=== PATIENT | female | born 2000 | race Caucasian/White ===

== ENCOUNTER 2020-05-20 08:11 | Emergency (ER) | payer OTHER, SELFPAY ==
--- NOTE | 2020-05-20 08:24 | ED.GENADULT ---
HPI - General Adult General Chief complaint: Ear Stated complaint: ear pain Time Seen by Provider: 05/20/20 08:34 Source: patient Mode of arrival: ambulatory Limitations: no limitations History of Present Illness HPI narrative: 20-year-old female patient presents to the [facility] with complaints of left ear pain x1 week. Denies any fevers, body aches or chills. Denies any runny nose, cough or sore throat. Denies any chest pain, shortness of breath, abdominal pain, nausea, vomiting or diarrhea. Patient denies or breast-feeding at this time. Patient states she really has not taken anything for her symptoms since they started. Denies any recent swimming. Related Data Home Medications Medication Instructions Recorded Confirmed drospirenone-ethinyl estradiol tablet 05/20/20 [Ld (28)] Allergies Allergy/AdvReac Type Severity Reaction Status Date / Time No Known Allergies Allergy Unverified 04/23/17 16:35 Review of Systems Review of Systems: Narrative: CONSTITUTIONAL: Denies fever, chills, or sweats. EYES: Denies visual changes, redness, or discharge. ENT: Denies rhinorrhea, congestion, sore throat, positive left otalgia. CARDIOVASCULAR: Denies chest pain, palpitations, or edema. RESPIRATORY: Denies cough or dyspnea. GASTROINTESTINAL: Denies abdominal pain, nausea, vomiting, or diarrhea. GENITOURINARY: Denies dysuria or hematuria. SKIN: Denies rash or itching. MUSCULOSKELETAL: Denies back pain, joint pain, or myalgia. NEUROLOGIC: Denies headache, numbness, or weakness. PSYCHIATRIC: Denies anxiety or depression. PMFSH Comments At the time of my signature I agree with nursing past medical history, surgical, social, and family history. There is no relevant family history pertinent to the presenting complaint. Exam Narrative: Exam Narrative: GENERAL: Well-appearing, well-nourished, and in no acute distress. HEAD: Normocephalic, atraumatic. EYES: PERRLA and EOMI. ENT: Nares clear, no rhinorrhea or epistaxis. Mucous membranes moist. Posterior pharynx with no erythema, tonsillar joint, exudates or lesions present. Bilateral TMs are clear with no erythema. No foreign bodies or erythema noted to the canal. The left ear does have a little bit of fluid noted behind the TM present. No obvious bulging noted. NECK: Supple. No lymphadenopathy CHEST: Clear to auscultation. No respiratory distress. HEART: Regular rate and rhythm. No murmur heard. Normal peripheral pulses. ABDOMEN: Soft, nontender, nondistended, normal active bowel sounds. EXTREMITIES: Normal range of motion. No edema. SKIN: Warm, dry, no rash. NEURO: No focal deficits. Alert and oriented x3. Course Vital Signs Vital signs: Vital Signs Temperature 37.2 C 05/20/20 08:27 Pulse Rate 79 05/20/20 08:27 Respiratory Rate 16 05/20/20 08:27 Blood Pressure 122/68 05/20/20 08:27 Pulse Oximetry 100 05/20/20 08:27 Temperature 37.2 C 05/20/20 08:27 Pulse Rate 79 05/20/20 08:27 Respiratory Rate 16 05/20/20 08:27 Blood Pressure 122/68 05/20/20 08:27 Pulse Oximetry 100 05/20/20 08:27 Vital signs reviewed. Medical Decision Making Differential Diagnosis Differential Diagnosis: Differential diagnosis: Otitis media, otitis externa, perforated TM, infection of the outer ear, foreign body or cerumen impaction, ruptured TM, acute mastoiditis, ligament otitis externa, dehydration, pneumonia, sepsis, dental or intraoral infection, TMJ dysfunction Discussed with patient we will go ahead and start her on some antibiotics that she has been having pain to the ear for the past week as well as noted that there is a little bit of fluid. Even though I do not see an obvious infection today this could accumulate into an infection in a couple of days. Patient also recommended to take some [id number] antihistamines to promote sinus drainage. Patient verbalized understanding at this time. Vital Signs Vital Signs: Vital Signs
[2020-05-20 08:27] VITALS: BP 122/68; PULSE 79; RESP 16; TEMP 37.2; O2SAT 100
== END 2020-05-20 08:53 | disposition home or self-care (01) ==
PROVIDERS: Emergency Provider Nurse Practitioner Family; PCP Internal Medicine
DX: H65.192 Other acute nonsuppurative otitis media, left ear (principal)
CPT/HCPCS: 99203; G0463